=== PATIENT | female | born 2000 | race Caucasian/White ===

== ENCOUNTER 2024-12-07 10:47 | Emergency (ER) | payer OTHER ==
--- NOTE | 2024-12-07 10:52 | ERPHSYRPT ---
- History of Present Illness Time Seen by Provider: 12/07/24 10:52 Historian: patient, family Exam Limitations: no limitations Physician History: This is an overweight 24-year-old white female patient arrives via private vehicle with the complaint of substernal, central chest pain that radiates into the bilateral upper quadrants. Patient's gallbladder still present. Patient did receive an antibiotic to treat a urinary tract infection on 12/05/2024. She did not take her medication with food this morning and began having significant pain in the above-stated area. The patient does have a history of gastroesophageal reflux disease and took her omeprazole but it has not "kicked in yet". Patient has no known history of coronary disease. Patient ate Bengali food last night Timing/Duration: today Activities at Onset: none Quality: sharpness, stabbing Location: substernal, central Chest Pain Radiation: abdomen (Lateral upper quadrant) Severity of Pain-Max: mild Severity of Pain-Current: mild Modifying Factors: Improves With: nothing Associated Symptoms: heartburn, No abdominal pain, No shortness of breath Prior Chest Pain/Cardiac Workup: no prior chest pain Nitro Today/Relief: no nitro taken today Aspirin Treatment Today: 81 mg x 4, provided by ED Allergies/Adverse Reactions: No Known Drug Allergies Allergy (Unverified 12/07/24 10:54) Travel Risk - International Travel Have you traveled outside of the country in past 3 weeks: No - Emerging Infectious Disease Are you exhibiting symptoms associated with any current EIDs: No - Review of Systems Constitutional: No Symptoms Eyes: No Symptoms Ears, Nose, & Throat: No Symptoms Respiratory: No Symptoms Cardiac: Chest Pain Abdominal/Gastrointestinal: Abdominal Pain (Lateral upper quadrant) Genitourinary Symptoms: No Symptoms Musculoskeletal: No Symptoms Skin: No Symptoms Neurological: No Symptoms Psychological: No Symptoms Endocrine: No Symptoms Hematologic/Lymphatic: No Symptoms Immunological/Allergic: No Symptoms All Other Systems: Reviewed and Negative - Past Medical History Pertinent Past Medical History: Yes - Nursing Vital Signs Nursing Vital Signs: Initial Vital Signs Pulse Rate 106 H 12/07/24 10:48 Respiratory Rate 18 12/07/24 10:48 Blood Pressure 152/91 12/07/24 10:48 O2 Sat by Pulse Oximetry 99 12/07/24 10:48 Pain Scale Pain Intensity 0 - Physical Exam General Appearance: no apparent distress, alert, anxiety Eye Exam: PERRL/EOMI, eyes nml inspection Ears, Nose, Throat Exam: normal ENT inspection, moist mucous membranes Neck Exam: normal inspection, non-tender, supple, full range of motion Respiratory Exam: normal breath sounds, chest tenderness (Mild epigastric and bilateral upper quadrant), lungs clear, airway intact, No respiratory distress Cardiovascular Exam: normal heart sounds, normal peripheral pulses, tachycardia Gastrointestinal/Abdomen Exam: soft, normal bowel sounds, tenderness (Epigastrium and bilateral upper quadrants) Pelvic Exam: not done Rectal Exam: not done Back Exam: normal inspection, normal range of motion, No CVA tenderness, No vertebral tenderness Extremity Exam: normal inspection, normal range of motion, pelvis stable Neurologic Exam: alert, oriented x 3, cooperative, chemical operator II-XII nml as tested, nml cerebellar function, nml station & gait, sensation nml Skin Exam: normal color, warm, dry Lymphatic Exam: No adenopathy SpO2 Interpretation: normal O2 Delivery: Room Air - Course Nursing assessment & vital signs reviewed: Yes EKG Interpreted by Me: RATE ([id number]), NORMAL AXIS, NORMAL INTERVALS, NORMAL QRS, Other (QTc is 457. No acute ischemic changes on today's twelve-lead EKG.) Ordered Tests: Active Orders 24 hr Category Date Time Status [employer]ishing [employer]essel STAT Care 12/07/24 11:20 Active EKG-ER Only STAT Care 12/07/24 11:19 Active Pulse Oximetry (ED) STAT Care 12/07/24 11:19 Active CBC W DIFF Stat Lab 12/07/24 12:30 Completed CMP Stat Lab 12/07/24 12:30 Completed D-DIMER QUANTITATIVE Stat Lab 12/07/24 12:30 Completed TROPONIN Q4H Lab 12/07/24 12:30 Completed TROPONIN Q4H Lab 12/07/24 15:30 Ordered TROPONIN Q4H Lab 12/07/24 19:30 Ordered Medication Summary Discontinued Medications Generic Name Dose Route Start Last Admin Trade Name Freq PRN Reason Stop Dose Admin Al Hydrox/Mg Hydrox/Simethicone Confirm 12/07/24 11:38 Mag Hydrox/Al Hydrox/Simeth 30 Ml Udcup Administered 12/07/24 11:39 Dose 30 ml .ROUTE .STK-MED ONE Aspirin 324 mg 12/07/24 11:19 12/07/24 11:39 Aspirin 81 Mg Tab.Chew PO 12/07/24 11:20 324 mg STAT ONE Administration Aspirin Confirm 12/07/24 11:38 Aspirin 81 Mg Tab.Chew Administered 12/07/24 11:39 Dose 324 mg .ROUTE .STK-MED ONE Lidocaine HCl Confirm 12/07/24 11:38 Lidocaine Hcl 2% Viscous 15 Ml Udcup Administered 12/07/24 11:39 Dose 15 ml .ROUTE .STK-MED ONE Magnesium Hydroxide 45 ml 12/07/24 11:20 12/07/24 11:39 Mag Hydrx/Alum Hyd/Simeth/Lido 45 Ml Bottle PO 12/07/24 11:21 45 ml STAT ONE Administration Lab/Rad Data: Laboratory Result Diagrams 12/07/24 12:30 12/07/24 12:30 Laboratory Results 12/07/24 12/07/24 12/07/24 Range/Units 12:30 12:30 12:30 WBC (3.98-10.04) x10^3/uL RBC (3.93-5.22) x10^6/uL Hgb (11.2-15.7) g/dL Hct (34.1-44.9) % MCV (79.4-94.8) fL MCH (25.6-32.2) pg MCHC (32.2-35.5) g/dL RDW (11.7-14.4) % Plt Count (182-369) x10^3/uL MPV (9.4-12.3) fL Gran % (34.0-71.1) % Immature Gran % (Auto) (0.001-0.429) % Nucleat RBC Rel Count (0.00-0.2) % Eos # (Auto) (0.04-0.36) x10^3/uL Immature Gran # (Auto) (0.001-0.031) x10^3u/L Absolute Lymphs (auto) (1.18-3.74) x10^3/uL Absolute Monos (auto) (0.24-0.86) x10^3/uL Absolute Nucleated RBC (0.00-0.012) x10^3u/L Lymphocytes % (19.3-51.7) % Monocytes % (4.7-12.5) % Eosinophils % (0.7-5.8) % Basophils % (0.1-1.2) % Absolute Granulocytes (1.56-6.13) x10^3/uL Basophils # (0.01-0.08) x10^3/uL D-Dimer 0.24 (0.0-0.50) mg/L Sodium 139 (135-145) mmol/L Potassium 3.9 (3.5-5.1) mmol/L Chloride 105 (98-107) mmol/L Carbon Dioxide 26 (22-30) mmol/L Anion Gap 11.4 (5-15) MEQ/L BUN 11 (7-17) mg/dL Creatinine 0.54 (0.52-1.04) mg/dL Estimated GFR 133.4 ML/MIN Glucose 109 H (74-106) mg/dL Calcium 9.1 (8.4-10.2) mg/dL Total Bilirubin 0.20 (0.2-1.3) mg/dL AST 27 (14-36) U/L ALT 24 (0-35) U/L Alkaline Phosphatase 81 (38-126) U/L Troponin I < 0.012 (0.000-0.033) ng/mL Serum Total Protein 7.4 (6.3-8.2) g/dL Albumin 4.2 (3.5-5.0) g/dL 12/07/24 Range/Units 12:30 WBC 8.1 (3.98-10.04) x10^3/uL RBC 4.67 (3.93-5.22) x10^6/uL Hgb 13.5 (11.2-15.7) g/dL Hct 40.5 (34.1-44.9) % MCV 86.7 (79.4-94.8) fL MCH 28.9 (25.6-32.2) pg MCHC 33.3 (32.2-35.5) g/dL RDW 13.0 (11.7-14.4) % Plt Count 296 (182-369) x10^3/uL MPV 10.9 (9.4-12.3) fL Gran % 71.7 H (34.0-71.1) % Immature Gran % (Auto) 0.4 (0.001-0.429) % Nucleat RBC Rel Count 0.0 (0.00-0.2) % Eos # (Auto) 0.09 (0.04-0.36) x10^3/uL Immature Gran # (Auto) 0.03 (0.001-0.031) x10^3u/L Absolute Lymphs (auto) 1.58 (1.18-3.74) x10^3/uL Absolute Monos (auto) 0.50 (0.24-0.86) x10^3/uL Absolute Nucleated RBC 0.00 (0.00-0.012) x10^3u/L Lymphocytes % 19.6 (19.3-51.7) % Monocytes % 6.2 (4.7-12.5) % Eosinophils % 1.1 (0.7-5.8) % Basophils % 1.0 (0.1-1.2) % Absolute Granulocytes 5.78 (1.56-6.13) x10^3/uL Basophils # 0.08 (0.01-0.08) x10^3/uL D-Dimer (0.0-0.50) mg/L Sodium (135-145) mmol/L Potassium (3.5-5.1) mmol/L Chloride (98-107) mmol/L Carbon Dioxide (22-30) mmol/L Anion Gap (5-15) MEQ/L BUN (7-17) mg/dL Creatinine (0.52-1.04) mg/dL Estimated GFR ML/MIN Glucose (74-106) mg/dL Calcium (8.4-10.2) mg/dL Total Bilirubin (0.2-1.3) mg/dL AST (14-36) U/L ALT (0-35) U/L Alkaline Phosphatase (38-126) U/L Troponin I (0.000-0.033) ng/mL Serum Total Protein (6.3-8.2) g/dL Albumin (3.5-5.0) g/dL - Progress Progress: improved, re-examined Air Movement: good Progress Note: 12/07/24 11:18 My medical decision making and the assignment of moderate complexity to this patient's medical issue today is based on review of the patient's past medical history, reviewed patient's medication list, reviewed patient drug allergy list, history of present illness and physical findings on examination. The workup in this patient includes placement of intravenous line, CBC, CMP, amylase, lipase, troponin level, D-dimer level, twelve-lead EKG, GI cocktail and 4 baby aspirin Differential diagnosis includes but is not limited to gastritis, myocardial infarction, arrhythmia, electrolyte abnormalities, pulmonary embolus 12/07/24 13:45 I interpreted the patient's laboratory data results. Based on the laboratory data results, the patient has no acute, emergent medical issue The patient's heart score is low and can safely be discharged to home. Blood Culture(s) Obtained: No Antibiotics given: No Counseled pt/family regarding: lab results, diagnosis, need for follow-up Medical Desision Making - Independent Historian Additional History obtained from: Spouse - Diagnostic Testing Diagnostic test were ordered, analyzed, and reviewed by me: Yes - Risk of complications Low Risk: Low risk of morbidity from additional dx testing or treatment - Departure Departure Disposition: Home Clinical Impression: Gastritis, Nonspecific chest pain Condition: Stable Critical Care Time: No Referrals: DOCTOR,NO FAMILY [Primary Care Provider, UNKNOWN] - Follow up/PCP as directed Additional Instructions: Continue your omeprazole as prescribed. Take your antibiotics with food. Call your primary care provider today, 12/07/2024, to make arrangements for follow-up appointment to be seen next week for further evaluation management.
[2024-12-07] MEDS ORDERED: MAALOX ES 30 ML UNIT DOSE ONE (11:38)
[2024-12-07] MEDS ORDERED: BABY ASPIRIN 81 MG CHEW ONE (11:38)
[2024-12-07] MEDS ORDERED: XYLOCAINE VISCOUS 2% 15 ML CUP ONE (11:38)
[2024-12-07] MEDS: GI COCKTAIL 45 ML (Maalox/Lidocaine) PO ONE (11:39)
[2024-12-07] MEDS: BABY ASPIRIN 81 MG CHEW PO ONE (11:39)
[2024-12-07 12:06] VITALS: BP 126/88
[2024-12-07 12:56] LABS: BASOPHIL % 1.0 % (0.1-1.2); Basophil (Absolute #) 0.08 x10^3/uL (0.01-0.08); Eosinophil (Absolute #) 0.09 x10^3/uL (0.04-0.36); Hematocrit 40.5 % (34.1-44.9); Hemoglobin 13.5 g/dL (11.2-15.7); IMMATURE GRAN # 0.03 x10^3u/L (0.001-0.031); IMMATURE GRAN % 0.4 % (0.001-0.429); Lymphocyte (Absolute #) 1.58 x10^3/uL (1.18-3.74); Mean Corpuscular Hemoglobin 28.9 pg (25.6-32.2); Mean Corpuscular Hgb Concent. 33.3 g/dL (32.2-35.5); Monocyte (Absolute #) 0.50 x10^3/uL (0.24-0.86); NUCLEATED RBC # 0.00 x10^3u/L (0.00-0.012); NUCLEATED RBC % 0.0 % (0.00-0.2); Platelet Count 296 x10^3/uL (182-369); Red Blood Count 4.67 x10^6/uL (3.93-5.22); White Blood Count 8.1 x10^3/uL (3.98-10.04)
[2024-12-07 13:11] LABS: Calcium 9.1 mg/dL (8.4-10.2); Carbon Dioxide 26.0 mmol/L (22-30); Creatinine 1 0.54 mg/dL (0.52-1.04); EST GLOMERULAR FILTRATION RATE 133.4 ML/MIN; Glucose 109.0 mg/dL (74-106); Potassium 3.9 mmol/L (3.5-5.1); SGOT/AST 27.0 U/L (14-36); SGPT/ALT 24.0 U/L (0-35); Total Protein 7.4 g/dL (6.3-8.2)
[2024-12-07 13:12] VITALS: PULSE 103; RESP 34; O2SAT 98
== END 2024-12-07 14:03 | disposition home or self-care (01) ==
LOC: ED 10:47
DX: K29.70 Gastritis, unspecified, without bleeding (principal); R07.9 Chest pain, unspecified; Z79.899 Other long term (current) drug therapy